=== PATIENT | female | born 1930 | race Caucasian/White ===

== ENCOUNTER 2017-02-18 04:33 | Inpatient (IN) | payer MEDICARE, BC ==
[2017-02-17 22:19] LABS: HEMOGLOBIN 10.4 g/dL (12.0-16.0); MEAN CORPUS HGB CONC 30.6 g/dL (32.0-36.0); MEAN CORPUSCULAR HEMOGLOB 24.9 pg (26.0-34.0); MEAN PLATELET VOLUME 10.1 fL (9.2-13.0); PLATELET COUNT 219 10/3/uL (150-400); RBC DISTRIBUTION WIDTH 17.8 % (12.0-16.0); RED CELL COUNT 4.18 10/6/uL (4.0-5.6)
[2017-02-17 22:21] LABS: MEAN CORPUSCULAR VOLUME 81.3 fL (80-100); WHITE BLOOD CELLS 26.2 10/3/uL (4.5-10.5)
[2017-02-17 22:24] LABS: MANUAL DIFF YES %
[2017-02-17 22:38] LABS: ANISOCYTOSIS 1+ (5-10/OIF) (0-5/OIF); BAND NEUTROPHILS 10 %; LYMPHOCYTES 1 %; LYMPHOCYTES ABSOLUTE (CALC) 0.26 10/3/uL (0.67-4.30); MONOCYTES 2 %; MONOCYTES ABSOLUTE (CALC) 0.52 10/3/uL (0.21-1.20); NEUTROPHILS ABSOLUTE (CALC) 25.41 10/3/uL (2.02-8.40); PLATELET ESTIMATE ADQ (ADEQUATE); SEGMENTED NEUTROPHIL (0) 87 %; TOTAL NUCLEATED CELLS 100
[2017-02-17 22:41] LABS: ASCORBIC ACID (UR NOT ORDER) NEG (NEG); BILIRUBIN, URINE NEGATIVE (NEG); KETONE, URINE NEGATIVE (NEG)
--- NOTE | ~2017-02-18 | DS ---
Discharge Summary [facility] [address] [place]. [address] NAME: ANGELICA BELLO : [birth year] STATUS : DIS IN PAT#: [id number] AGE: 86 ADM/REG DATE : 02/18/17 MR#: [id number] REPORT SERV DATE: 02/28/17 DICTATED BY: LUIZA DAO DATE: 02/23/17 REPORT STATUS : Draft TRANSCRIBED BY: HUGO DATE: 02/23/17 ADMISSION DATE: 02/18/2017 DISCHARGE DATE: 02/23/2017 DISCHARGE DIAGNOSES: 1. Sepsis secondary to urinary tract infection. 2. 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 3. Left lingular lobe pneumonia. 4. History of nephrolithiasis. 5. 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 6. Severe advanced vascular dementia. 7. History of chronic atrial fibrillation, on Eliquis. 8. Hypertension. 9. History of hyperlipidemia. 10.Hypothyroidism. 11.Obstructive sleep apnea, noncompliant with CPAP therapy. 12.History of gastroesophageal reflux disease. 13.History of dysphagia requiring PEG tube insertion, now removed. 14.DNR code status. 15.Acute encephalopathy. DISCHARGE CONDITION: Stable. HISTORY OF PRESENT ILLNESS: For detailed HPI, please make reference to Dr. Kendall Cuellar's dictation on 02/18/2017. In brief, this is an 86-year-old female with advanced dementia who is a long-term resident of [facility] who presented to the emergency room with concerns of fevers. The patient was found to have a temperature of 102 degree Fahrenheit and noted to have some significant abnormal labs, hence, was transferred to the emergency room for further evaluation. In the ER, temperature was 100.5, pulse was 92, blood pressure 135/44, MAP of 65, saturating 97% on room air. Physical examination was noted for irregularly irregular rate and rhythm, sedated and lethargic, unable to complete the neuro exam. LABORATORY DATA: Laboratory data in the ER showed white blood cell of 27.1, hemoglobin of 10.2, creatinine of 0.86. Urinalysis showed large leukocyte esterase with 69 white blood cell count with many bacteria. Chest x-ray showed a left lower lobe infiltrate concerning for pneumonia and assessment of severe sepsis secondary to urinary tract infection and pneumonia was made in the ER, the patient was admitted to the Hospitalist Service. HOSPITAL COURSE: 1. Severe sepsis secondary to urinary tract infection and left lower lobe pneumonia. The patient's blood cultures were obtained. Urine cultures were obtained. Sputum cultures obtained. The patient was started on empiric broad-spectrum IV antibiotics. The patient's white blood cell gradually trended down, remained afebrile. Urine culture came back positive for ESBL E. coli blood cultures which yielded no growth. The patient was transitioned from IV broad-spectrum antibiotics to IV meropenem. When the patient's white blood cell count returned back to baseline of 8.0, the patient was Discharge Summary [address] [address] NAME: ANGELICA BELLO : [birth year] STATUS : DIS IN PAT#: [id number] AGE: 86 ADM/REG DATE : 02/18/17 MR#: [id number] REPORT SERV DATE: 02/28/17 DICTATED BY: LUIZA DAO DATE: 02/23/17 REPORT STATUS : Draft TRANSCRIBED BY: HUGO DATE: 02/23/17 transitioned to p.o. antibiotics. Prior to discharge, the patient has completed five days of IV antibiotics for UTI. The patient was advised to follow up with primary care physician. 2. Acute encephalopathy. During the course of this admission, the patient developed severe drowsiness, somnolence, and CT of the brain was done that shows chronic known CVA but no acute CVA and MRI was done that showed no evidence of acute cerebrovascular accident, noted was severe cerebral atrophy. EEG was done that shows diffuse slow-wave consistent with metabolic encephalopathy. No seizure-like activity is detected, severe metabolic encephalopathy likely related to sequelae of known CVA. The patient was advised to continue Keppra. The patient was advised to avoid all sedating medications. The patient's mental status has significantly improved prior to discharge. The patient was subsequently discharged to [facility] in stable condition. 3. Atrial fibrillation. The patient's rate was controlled throughout the course of this admission. The patient was continued on Eliquis for chronic anticoagulation. DISCHARGE MEDICATIONS: 1. Norvasc 2.5 mg p.o. every morning. 2. Apixaban 2.5 mg p.o. b.i.d. 3. Artificial Tear ointment. 4. Dulcolax 10 mg p.o. suppository. 5. BuSpar 5 mg p.o. daily. 6. Coreg 25 mg p.o. b.i.d. 7. Cymbalta 60 mg p.o. every morning. 8. Flonase nasal spray. 9. Keppra 50 mg p.o. daily. 10.Levothyroxine 125 mcg p.o. at bedtime. 11.Omeprazole 20 mg p.o. daily. 12.MiraLAX p.r.n. 13.Sherita-Colace. 14.Acetaminophen. 15.Hydrocodone 7.5 mg p.o. p.r.n. for pain. DISCHARGE ACTIVITY: As tolerated. DISCHARGE DISPOSITION: residential facility at [facility]. Greater than 35 minutes was used to prepare this patient's discharge, reconcile medication, advise the patient on discharge plans and followup. DICTATED BY: MD TOM SextonO/HUGO Discharge Summary [address] [address] NAME: ANGELICA BELLO : [birth year] STATUS : DIS IN LOCATED WITHIN [facility]#: [id number] AGE: 86 ADM/REG DATE : 02/18/17 MR#: [id number] REPORT SERV DATE: 02/28/17 DICTATED BY: LUIZA DAO DATE: 02/23/17 REPORT STATUS : Draft TRANSCRIBED BY: MODL DATE: 02/23/17 Luiza Dao MD / [id number] CC: Luiza Dao MD
--- NOTE | ~2017-02-18 | EEG ---
Electroencephalogram [facility] [address] [place]. [address] NAME: ANGELICA BELLO : [birth year] STATUS : ADM IN PAT#: [id number] AGE: 86 ADM/REG DATE : 02/18/17 MR#: [id number] REPORT SERV DATE: 02/23/17 DICTATED BY: JOHNNIE HERNANDEZ DATE: 02/23/17 REPORT STATUS : Draft TRANSCRIBED BY: MODL DATE: 02/23/17 INTERPRETING PHYSICIAN: Johnnie Hernandez MD-Neurology. REASON FOR EEG: Altered mental status and encephalopathy. 23 surface electrodes, 10-20 international placement was used. The patient was noted to be awake and drowsy throughout the study. Photic stimulation was performed. Video monitoring was utilized. The background activity consisted of moderate voltage poorly-organized 7 to 8 cycles per second, located in the posterior head regions. Mild asymmetry of cerebral activity was seen with increase of slower frequencies noted in the right hemisphere especially in the right temporal region with slowing noted consistently throughout the recording. Photic stimulation did not bring out additional abnormalities and no driving response was noted posteriorly. No paroxysmal or epileptiform activity was seen during the study. The patient's architectural administrative assistant showed irregularly irregular heart rate of approximately 76 to 82 beats per minute. IMPRESSION: ABNORMAL EEG CHARACTERIZED BY DIFFUSE SLIGHT SLOWING OF CEREBRAL ACTIVITY WITH PERSISTENT ASYMMETRY OF RIGHT HEMISPHERIC SLOWING PRESENT. THIS SLOWING WAS MOST PROMINENT IN THE RIGHT POSTERIOR TEMPORAL REGION. NO PAROXYSMAL OR EPILEPTIFORM ACTIVITY WAS SEEN DURING THE STUDY. THIS EEG IS COMPATIBLE WITH DIFFUSE CEREBRAL DYSFUNCTION UNDERLYING RIGHT HEMISPHERIC SLOWING, MAY SUGGEST PRESENCE OF PERSISTENT PHYSIOLOGICAL DISTURBANCE. THIS PATTERN IS FREQUENTLY SEEN IN PATIENTS WITH PAST HISTORY OF HEMISPHERIC CVA. CLINICAL CORRELATION IS RECOMMENDED. SPIKE/HUGO Johnnie Hernandez MD / [id number] CC: Luiza Naidu MD UNKNOWN
--- NOTE | ~2017-02-18 | HP ---
History And Physical [facility] [address] [place]. [address] NAME: ANGELICA KOCH : [birth year] STATUS : ADM IN [facility]#: [id number] AGE: 86 ADM/REG DATE : 02/18/17 MR#: [id number] REPORT SERV DATE: 02/18/17 DICTATED BY: LUCAS DUFFY DATE: 02/18/17 REPORT STATUS : Draft TRANSCRIBED BY: MODL DATE: 02/18/17 DATE OF ADMISSION: 02/18/2017 POINT OF ENTRY: [facility] Emergency Department. CHIEF COMPLAINT: Fevers and abnormal labs. HISTORY OF PRESENT ILLNESS: Ms. Koch is an 86-year-old female with a history of advanced dementia, who is a long-term resident of [facility] with 24/7 caregivers, who is transferred over for reports of fevers of 102 degrees Fahrenheit as well as abnormal labs. All of history is obtained from review of transfer records, discussion with the ER staff, as well as discussion with her long-term caregiver who was at bedside. She states that the patient had a fever of up to 102 degrees Fahrenheit earlier on the morning of the . The patient also had an episode of nausea and vomiting on as well. Labs were drawn which reportedly came back later the evening of the which showed a white count of approximately 26,000. She was subsequently transferred to [facility] for further evaluation. Caregiver denies any recent concerns for aspiration or dysphagia. She does not eat much but otherwise has not noticed any other significant changes in her behavior. Initial evaluation in the emergency department notable for a white count of 27,100. Lactic acid mildly elevated at 2.8. Urinalysis is positive for urinary tract infection. Chest x- ray concerning for possible left lingular or upper lobe infiltrate. She was subsequently given some IV fluids, 2 g of Rocephin, and some vancomycin, admitted to the Hospitalist Service. REVIEW OF SYSTEMS: Unable to be obtained secondary to the patient's dementia and altered mental status. PREVIOUS MEDICAL HISTORY: 1. Advanced dementia. 2. History of cerebrovascular accident. 3. Seizure disorder. 4. Atrial fibrillation, on Eliquis. 5. Hypertension. 6. Hyperlipidemia. 7. Hypothyroidism. 8. Obstructive sleep apnea, noncompliant with CPAP therapy. 9. History of nephrolithiasis. 10.History of recurrent urinary tract infections with ESBL E. coli. 11.Gastroesophageal reflux disease. 12.History of dysphagia requiring PEG tube insertion and now removal. SURGICAL HISTORY: 1. Abdominal hysterectomy. 2. Right shoulder. History And Physical [facility] [address] [facility] [place]. [address] NAME: ANGELICA KOCH : [birth year] STATUS : ADM IN [facility]#: [id number] AGE: 86 ADM/REG DATE : 02/18/17 MR#: [id number] REPORT SERV DATE: 02/18/17 DICTATED BY: LUCAS DUFFY DATE: 02/18/17 REPORT STATUS : Draft TRANSCRIBED BY: HUGO DATE: 02/18/17 3. Cystoscopy and ureteral stent placement. ALLERGIES: IODINE AND SHELLFISH. HOME MEDICATIONS: 1. Tylenol 650 mg q.4 hours p.r.n. 2. Norvasc 2.5 mg daily. 3. Eliquis 2.5 mg b.i.d. 4. Artificial Tears one to two drops q.i.d. 5. Dulcolax 10 mg daily p.r.n. 6. BuSpar 5 mg b.i.d. 7. Carvedilol 25 mg b.i.d. 8. Vitamin D 1000 units daily. 9. Cymbalta 60 mg daily. 10.Flonase one spray nasal daily. 11.Gabapentin 100 mg b.i.d. 12.[place] 7.5/325 one tab q.4 hours. 13.Keppra 500 mg daily. 14.Levothyroxine 112 mcg daily. 15.Milk of magnesia 30 mL daily p.r.n. 16.Omeprazole 20 mg at bedtime. 17.MiraLAX 17 g b.i.d. 18.Prednisone 5 mg daily. 19.Phenergan 12.5 mg q.8 hours p.r.n. 20.Florastor 250 mg b.i.d. 21.Senokot with docusate two tabs daily. 22.[place] nasal spray. 23.Systane ointment at bedtime. SOCIAL HISTORY: Denies any tobacco, alcohol, or illicits. She is a long-term resident of [facility]. Has 24/7 caregivers. FAMILY MEDICAL HISTORY: Coronary artery disease. LABS AND IMAGING: White count 27.1, hemoglobin 10.2, hematocrit is 32.8, and platelet count is 238. INR is 1.7. Sodium is 139, potassium 3.4, chloride 101, carbon dioxide 30, BUN 13, creatinine 0.86, glucose is 107, calcium is 8.4, protein 7.1, albumin is 2.8, bilirubin 0.7, ALT 21, AST 24, alkaline phosphatase is 67. Urinalysis: Specific gravity is 1.019, hazy with large blood, moderate leukocyte esterase, 15 red and 69 white blood cells per high-powered field with many bacteria. Chest x-ray per my review shows a left lingular versus upper lobe infiltrate. EKG per review shows atrial fibrillation with good rate control with heart rate of 93. No History And Physical [address] [address] NAME: ANGELICA KOCH : [birth year] STATUS : ADM IN [facility]#: [id number] AGE: 86 ADM/REG DATE : 02/18/17 MR#: [id number] REPORT SERV DATE: 02/18/17 DICTATED BY: LUCAS DUFFY DATE: 02/18/17 REPORT STATUS : Draft TRANSCRIBED BY: HUGO DATE: 02/18/17 evidence of any acute ischemia or infarction. PHYSICAL EXAMINATION: VITAL SIGNS: Temperature is 100.5 degrees Fahrenheit, pulse is 92, respirations 18, and saturating 97% on room air. Blood pressure 135/44, MAP of 65. GENERAL: The patient is chronically ill-appearing, elderly female who is currently somewhat sedated and lethargic from receiving Phenergan earlier. Caregiver is at bedside. HEENT: Atraumatic and normocephalic. Dry mucous membranes. Pupils are equal and round. NECK: No jugular venous distention. No carotid bruits. CARDIAC: Irregularly irregular rate and rhythm. No murmurs or gallops. Normal S1, S2. LUNGS: Limited examination by patient effort. I do not appreciate any wheezes, rhonchi, or crackles. ABDOMEN: Soft. It is somewhat tender on palpation diffusely. EXTREMITIES: Warm, perfused. No cyanosis, clubbing, or edema. SKIN: Warm and dry. PSYCH: Sedated. NEURO: Sedated and lethargic, unable to cooperate with neuro exam. ASSESSMENT: Ms. Koch is an 86-year-old female with history of nephrolithiasis as well as recurrent urinary tract infection who presents with fevers and elevated white count and found to have evidence of sepsis, urinary tract infection, as well as possible pneumonia. PROBLEM LIST: 1. Urinary tract infection and pyelonephritis. 2. Sepsis. 3. Left lingular pneumonia. 4. History of nephrolithiasis. 5. Severe dementia. 6. History of dysphagia. PLAN: 1. Urinary tract infection. The patient has a history of ESBL E. coli urinary tract infection. Therefore, we will change antibiotics to Zosyn for appropriate coverage. Follow up urine cultures. Given her history of nephrolithiasis, we will check a CT scan kidney stone protocol. 2. Left lingular pneumonia. Follow up formal Radiology interpretation of chest x-ray, but given history of dysphagia and aspiration in the past as well as nausea, vomiting earlier today, I am concerned for possible aspiration pneumonia which Zosyn will cover. Also adding on vancomycin given her residence at [facility]. Followup blood as well as sputum culture. 3. Sepsis. Meets criteria with leukocytosis as well as fevers at [facility] and heart rate greater than 90. Lactic acid is 2.8, provide aggressive IV fluid hydration, IV antibiotics. Follow up blood sputum and urine cultures. Repeat lactic acid as well as checking procalcitonin. 4. History of nephrolithiasis. Checking kidney stone protocol. 5. History of dysphagia, covering for possible aspiration pneumonia. 6. DVT prophylaxis. She is already on Eliquis. History And Physical [address] [address] NAME: ANGELICA KOCH : [birth year] STATUS : ADM IN [facility]#: [id number] AGE: 86 ADM/REG DATE : 02/18/17 MR#: [id number] REPORT SERV DATE: 02/18/17 DICTATED BY: LUCAS DUFFY DATE: 02/18/17 REPORT STATUS : Draft TRANSCRIBED BY: HUGO DATE: 02/18/17 7. Code status. The patient is DNR/DNI. This was confirmed with son over the phone. She also does not want to be overly aggressive with regard to her care, and at this time, we will hold off on central line placement or vasopressors should she develop that need in the future. SUNDEEP/MODL Lucas Duffy MD / [id number] CC: Sherley Bach Dr.
[2017-02-18 01:55] LABS: ASCORBIC ACID (UR NOT ORDER) NEG (NEG); BILIRUBIN, URINE NEGATIVE (NEG); ER URINALYSIS TAT 0 Hrs 02 Mins; KETONE, URINE NEGATIVE (NEG); LEUKOCYTE ESTERASE(NOT OR MOD (NEG); NITRITE (URINE) NEG (NEG); WBC (NOT ORDERED) (RFLEX) 69 (0-5)
[2017-02-18 03:34] LABS: BASOPHILS 0.1 %; BASOPHILS ABSOLUTE 0.02 10/3/uL (0.0-0.16); EOSINOPHILS 0.3 %; EOSINOPHILS ABSOLUTE 0.09 10/3/uL (0.0-0.53); ER CBC TAT 0 Hrs 05 Mins; HEMATOCRIT 32.8 % (36.0-48.0); HEMOGLOBIN 10.2 g/dL (12.0-16.0); IMMATURE GRANULOCYTES 0.4 %; LYMPHOCYTES 6.9 %; LYMPHOCYTES ABSOLUTE 1.87 10/3/uL (0.67-4.30); MEAN CORPUS HGB CONC 31.1 g/dL (32.0-36.0); MEAN CORPUSCULAR HEMOGLOB 25.2 pg (26.0-34.0); MEAN PLATELET VOLUME 9.9 fL (9.2-13.0); MONOCYTES 6.8 %; MONOCYTES ABSOLUTE 1.84 10/3/uL (0.21-1.20); NEUTROPHILS 85.5 %; NEUTROPHILS ABSOLUTE 23.15 10/3/uL (2.02-8.40); PLATELET COUNT 238 10/3/uL (150-400); RBC DISTRIBUTION WIDTH 17.7 % (12.0-16.0); RED CELL COUNT 4.05 10/6/uL (4.0-5.6); WHITE BLOOD CELLS 27.1 10/3/uL (4.5-10.5)
[2017-02-18 03:35] LABS: MANUAL DIFF NO %
[2017-02-18 03:41] LABS: INTERNATIONAL NORMAL RATI 1.7 UNITS (-); PARTIAL THROMBO TIME 31.6 SEC (22.5-37.2)
[2017-02-18 03:43] LABS: PROTIME (NOT ORD) 19.4 SEC (12.0-14.5)
[2017-02-18 03:48] LABS: A/G RATIO 0.7 (0.7-1.9); ALBUMIN 2.8 G/DL (3.5-5.0); ALKALINE PHOSPHATASE 67 U/L (45-117); BUN (BLOOD UREA NITROGEN) 13 MG/DL (6-23); CALCIUM, SERUM 8.4 MG/DL (8.5-10.4); CHLORIDE, SERUM 101 MMOL/L (96-112); CO2 (CARBON DIOXIDE) 30 MMOL/L (24-34); CREATININE 0.86 MG/DL (0.55-1.02); GFR AFRICAN AMERICAN 70 ML/MIN (>=60); GFR NON AFRICAN AMERICAN 61 ML/MIN (>=60); GLOBULIN 4.3 G/DL (2.5-4.1); GLUCOSE, SERUM 107 MG/DL (60-99); SGOT(AST) 24 U/L (5-40); SGPT(ALT) 21 U/L (5-65); SODIUM, SERUM 139 MMOL/L (135-148); TOTAL BILIRUBIN 0.7 MG/DL (0-1.2); TOTAL PROTEIN 7.1 G/DL (6.0-8.5)
[2017-02-18 03:49] LABS: POTASSIUM, SERUM 3.4 MMOL/L (3.5-5.3)
[2017-02-18 03:52] LABS: BAND NEUTROPHILS 9 %; ER DIFF TAT 0 Hrs 23 Mins; LYMPHOCYTES 7 %; PLATELET ESTIMATE ADQ (ADEQUATE); RBC MORPHOLOGY NORM (NORMAL); SEGMENTED NEUTROPHIL (0) 84 %; TOTAL NUCLEATED CELLS 100
[2017-02-18 03:58] LABS: LACTATE 2.8 MMOL/L (0.3-2.4)
[~2017-02-18 04:33] MED LIST: 8 HOUR650 MG PO; ASAB PO; ASPIRIN 81 MG B8113 PO; ATEN25 PO; B12100T PO; BEN25 PO; BENADRYL 50 MG50 MG PO; BISR PR; BUSPAR5 PO; C2 PO; C25 PO; CALTRA600D PO; CAT1 PO; CATPATCH1 TOP; CENTRUM PO; CENTRUM TAB1 TAB PO; CLARIT10 PO; COREG25 PO; COZ25 PO; CRANBERRY300 MG OR; CRANBERRY400 MG OR; CRESTOR10 PO; CYMBALTA30 PO; CYMBALTA60 PO; DIOV80 PO; DIOVAN HC1 PO; DITROPAN XL15 MG PO; DITROXL5 PO; DOMPERIDONE PO; DSS PO; ELIQUIS 2.5 MG2.5 MG PO; ENDOCET1 TA3 PO; EXELON9.5T TOP; FISH-EPA1000 MG PO; FLEXERIL5 MG PO; FLONASE NAS; FLORASTOR250 MG PO; FLUCON150 PO; HUSBAND TO BRING; JANTOVEN1 MG PO; JANTOVEN2 MG PO; K-TABS10 MEQ PO; KEPPRA XR500 MG PO; KEPPRA250 PO; KEPPRA500 PO; KLOR-CON M2020 MEQ PO; LEVOTHYROXIN112 MCG PO; LEVOTHYROXIN125 MCG PO; LIDODERM T; LIOR10 PO; LIPITOR10 PO; LOP50 PO; LOVENOX40 SC; LUTEIN20 MG OR; MACROBID PO; MAGOX4 PO; MIRALAX POWDER1 PKT PO; MIRALAXPKT PO; MOBIC7.5 PO; MOMUD PO; MUCINEX1200 MG PO; MULTIPLE VIT PO; MULTIVITAMI1 PO; MULTIVITAMINS PO; MYCOSCROI TOP; NEUR100 PO; NEXIUM40 PO; NORCO1 TA2 PO; NORV25 PO; NORV5 PO; NORVASC 2.5 MG2.5 MG PO; NYSTATIN T; NYSTOP100000 MG TOP; OCEAN NAS; OXYCOD PO; OXYCODONE-ACET1 EAC3 PO; OXYCON10 PO; OXYCON20 PO; OXYCONTIN30 MG PO; P10 PO; P5 PO; PCET PO; PEP20 PO; PERCOCET1 TA2 PO; PERCOCET1 TA4 PO; PERI-COLACE1 TAB PO; PLAVIX PO; PR12.5 PO; PR12.5R PR; PR25 PO; PREDNISOL5 PO; PREM625 PO; PRILO PO; REM15 PO; SENTAB PO; SINGULAIR1 PO; SYN1 PO; SYN112 PO; SYN125 PO; SYSTAN1 OPH; T PO; TEARS AGAI1 OPH; TEARS NATURA OPH; TESS PO; THERA MULTI1 ML PO; THERA PLUS; THERAVITE; THERAVITE PO; TOPXL25 PO; TOVIAZ4 MG PO; TOVIAZ8 MG PO; VESICARE5 PO; VITAMIN D31000 UNIT PO; ZITH250 PO; ZOCOR40 PO; ZOFRAN ODT4 MG PO; ZOL100 PO; ZOL50 PO
[2017-02-18 04:51] LABS: PROCALCITONIN 0.43 ng/mL (<0.5)
[2017-02-19 07:37] LABS: BASOPHILS 0.1 %; BASOPHILS ABSOLUTE 0.01 10/3/uL (0.0-0.16); EOSINOPHILS 0 %; HEMOGLOBIN 8.8 g/dL (12.0-16.0); IMMATURE GRANULOCYTES 0.2 %; IMMATURE GRANULOCYTES ABSOLUTE 0.03 10/3/uL (0.0-0.11); LYMPHOCYTES 5.4 %; LYMPHOCYTES ABSOLUTE 0.78 10/3/uL (0.67-4.30); MEAN CORPUS HGB CONC 31.9 g/dL (32.0-36.0); MEAN CORPUSCULAR HEMOGLOB 25.2 pg (26.0-34.0); MEAN CORPUSCULAR VOLUME 79.1 fL (80-100); MEAN PLATELET VOLUME 9.7 fL (9.2-13.0); MONOCYTES 4.9 %; MONOCYTES ABSOLUTE 0.71 10/3/uL (0.21-1.20); NEUTROPHILS 89.4 %; NEUTROPHILS ABSOLUTE 12.85 10/3/uL (2.02-8.40); PLATELET COUNT 193 10/3/uL (150-400); RBC DISTRIBUTION WIDTH 17.9 % (12.0-16.0); RED CELL COUNT 3.49 10/6/uL (4.0-5.6)
[2017-02-19 07:38] LABS: HEMATOCRIT 27.6 % (36.0-48.0); MANUAL DIFF NO %; WHITE BLOOD CELLS 14.4 10/3/uL (4.5-10.5)
[2017-02-19 07:54] LABS: BUN (BLOOD UREA NITROGEN) 11 MG/DL (6-23); CALCIUM, SERUM 8.6 MG/DL (8.5-10.4); CHLORIDE, SERUM 109 MMOL/L (96-112); CO2 (CARBON DIOXIDE) 28 MMOL/L (24-34); CREATININE 0.68 MG/DL (0.55-1.02); GFR AFRICAN AMERICAN 91 ML/MIN (>=60); GFR NON AFRICAN AMERICAN 79 ML/MIN (>=60); GLUCOSE, SERUM 138 MG/DL (60-99); POTASSIUM, SERUM 3.5 MMOL/L (3.5-5.3); SODIUM, SERUM 145 MMOL/L (135-148)
[2017-02-20 04:12] LABS: BASOPHILS 0 %; EOSINOPHILS 0 %; HEMATOCRIT 27.4 % (36.0-48.0); HEMOGLOBIN 8.6 g/dL (12.0-16.0); IMMATURE GRANULOCYTES 0.6 %; IMMATURE GRANULOCYTES ABSOLUTE 0.06 10/3/uL (0.0-0.11); LYMPHOCYTES 7.1 %; LYMPHOCYTES ABSOLUTE 0.72 10/3/uL (0.67-4.30); MEAN CORPUS HGB CONC 31.4 g/dL (32.0-36.0); MEAN CORPUSCULAR HEMOGLOB 25.1 pg (26.0-34.0); MEAN CORPUSCULAR VOLUME 79.9 fL (80-100); MEAN PLATELET VOLUME 9.4 fL (9.2-13.0); MONOCYTES 5.2 %; MONOCYTES ABSOLUTE 0.53 10/3/uL (0.21-1.20); NEUTROPHILS 87.1 %; NEUTROPHILS ABSOLUTE 8.79 10/3/uL (2.02-8.40); PLATELET COUNT 216 10/3/uL (150-400); RBC DISTRIBUTION WIDTH 17.8 % (12.0-16.0); RED CELL COUNT 3.43 10/6/uL (4.0-5.6); WHITE BLOOD CELLS 10.1 10/3/uL (4.5-10.5)
[2017-02-20 04:13] LABS: MANUAL DIFF NO %
[2017-02-20 04:25] LABS: BUN (BLOOD UREA NITROGEN) 12 MG/DL (6-23); CALCIUM, SERUM 8.6 MG/DL (8.5-10.4); CHLORIDE, SERUM 109 MMOL/L (96-112); CO2 (CARBON DIOXIDE) 26 MMOL/L (24-34); CREATININE 0.57 MG/DL (0.55-1.02); GFR AFRICAN AMERICAN 97 ML/MIN (>=60); GFR NON AFRICAN AMERICAN 83 ML/MIN (>=60); GLUCOSE, SERUM 136 MG/DL (60-99); POTASSIUM, SERUM 3.2 MMOL/L (3.5-5.3); SODIUM, SERUM 145 MMOL/L (135-148)
[2017-02-21 06:35] LABS: BASOPHILS 0.1 %; BASOPHILS ABSOLUTE 0.01 10/3/uL (0.0-0.16); EOSINOPHILS 0.1 %; EOSINOPHILS ABSOLUTE 0.01 10/3/uL (0.0-0.53); HEMATOCRIT 29.3 % (36.0-48.0); HEMOGLOBIN 9.1 g/dL (12.0-16.0); IMMATURE GRANULOCYTES 0.7 %; IMMATURE GRANULOCYTES ABSOLUTE 0.07 10/3/uL (0.0-0.11); LYMPHOCYTES 14.7 %; LYMPHOCYTES ABSOLUTE 1.52 10/3/uL (0.67-4.30); MANUAL DIFF NO %; MEAN CORPUS HGB CONC 31.1 g/dL (32.0-36.0); MEAN CORPUSCULAR HEMOGLOB 24.9 pg (26.0-34.0); MEAN CORPUSCULAR VOLUME 80.1 fL (80-100); MEAN PLATELET VOLUME 9.5 fL (9.2-13.0); MONOCYTES 12.9 %; MONOCYTES ABSOLUTE 1.33 10/3/uL (0.21-1.20); NEUTROPHILS 71.5 %; PLATELET COUNT 262 10/3/uL (150-400); RBC DISTRIBUTION WIDTH 17.7 % (12.0-16.0); RED CELL COUNT 3.66 10/6/uL (4.0-5.6); WHITE BLOOD CELLS 10.3 10/3/uL (4.5-10.5)
[2017-02-21 06:50] LABS: BUN (BLOOD UREA NITROGEN) 14 MG/DL (6-23); CALCIUM, SERUM 8.3 MG/DL (8.5-10.4); CHLORIDE, SERUM 102 MMOL/L (96-112); CO2 (CARBON DIOXIDE) 29 MMOL/L (24-34); CREATININE 0.74 MG/DL (0.55-1.02); GFR AFRICAN AMERICAN 84 ML/MIN (>=60); GFR NON AFRICAN AMERICAN 73 ML/MIN (>=60); GLUCOSE, SERUM 119 MG/DL (60-99); SODIUM, SERUM 142 MMOL/L (135-148)
[2017-02-21 06:53] LABS: POTASSIUM, SERUM 2.8 MMOL/L (3.5-5.3)
[2017-02-22 05:58] LABS: BASOPHILS 0.1 %; BASOPHILS ABSOLUTE 0.01 10/3/uL (0.0-0.16); EOSINOPHILS 0.5 %; EOSINOPHILS ABSOLUTE 0.05 10/3/uL (0.0-0.53); HEMATOCRIT 31.2 % (36.0-48.0); HEMOGLOBIN 9.7 g/dL (12.0-16.0); IMMATURE GRANULOCYTES 1.3 %; IMMATURE GRANULOCYTES ABSOLUTE 0.14 10/3/uL (0.0-0.11); LYMPHOCYTES 24.5 %; LYMPHOCYTES ABSOLUTE 2.59 10/3/uL (0.67-4.30); MEAN CORPUS HGB CONC 31.1 g/dL (32.0-36.0); MEAN CORPUSCULAR HEMOGLOB 24.9 pg (26.0-34.0); MEAN CORPUSCULAR VOLUME 80.2 fL (80-100); MEAN PLATELET VOLUME 9.2 fL (9.2-13.0); MONOCYTES 14.4 %; MONOCYTES ABSOLUTE 1.53 10/3/uL (0.21-1.20); NEUTROPHILS 59.2 %; NEUTROPHILS ABSOLUTE 6.27 10/3/uL (2.02-8.40); PLATELET COUNT 271 10/3/uL (150-400); RBC DISTRIBUTION WIDTH 17.5 % (12.0-16.0); RED CELL COUNT 3.89 10/6/uL (4.0-5.6); WHITE BLOOD CELLS 10.6 10/3/uL (4.5-10.5)
[2017-02-22 06:02] LABS: MANUAL DIFF NO %
[2017-02-22 06:11] LABS: BUN (BLOOD UREA NITROGEN) 13 MG/DL (6-23); CHLORIDE, SERUM 103 MMOL/L (96-112); CREATININE 0.72 MG/DL (0.55-1.02); GFR AFRICAN AMERICAN 87 ML/MIN (>=60); GFR NON AFRICAN AMERICAN 75 ML/MIN (>=60); GLUCOSE, SERUM 109 MG/DL (60-99); POTASSIUM, SERUM 3.1 MMOL/L (3.5-5.3); SODIUM, SERUM 144 MMOL/L (135-148)
[2017-02-22 06:14] LABS: CO2 (CARBON DIOXIDE) 35 MMOL/L (24-34); PHOSPHORUS, SERUM 2.2 MG/DL (2.5-4.5)
[2017-02-22 12:00] LABS: HEMOGLOBIN 10.7 g/dL (12.0-16.0); MEAN CORPUS HGB CONC 30.5 g/dL (32.0-36.0); MEAN CORPUSCULAR HEMOGLOB 24.8 pg (26.0-34.0); MEAN CORPUSCULAR VOLUME 81.3 fL (80-100); MEAN PLATELET VOLUME 9.1 fL (9.2-13.0); PLATELET COUNT 255 10/3/uL (150-400); RBC DISTRIBUTION WIDTH 17.9 % (12.0-16.0); RED CELL COUNT 4.32 10/6/uL (4.0-5.6)
[2017-02-22 12:01] LABS: HEMATOCRIT 35.1 % (36.0-48.0); MANUAL DIFF YES %
[2017-02-22 12:16] LABS: BUN (BLOOD UREA NITROGEN) 13 MG/DL (6-23); CALCIUM, SERUM 8.1 MG/DL (8.5-10.4); CHLORIDE, SERUM 102 MMOL/L (96-112); CO2 (CARBON DIOXIDE) 32 MMOL/L (24-34); CREATININE 0.59 MG/DL (0.55-1.02); GFR AFRICAN AMERICAN 96 ML/MIN (>=60); GFR NON AFRICAN AMERICAN 82 ML/MIN (>=60); GLUCOSE, SERUM 144 MG/DL (60-99); POTASSIUM, SERUM 3.2 MMOL/L (3.5-5.3); SODIUM, SERUM 142 MMOL/L (135-148); TROPONIN I <0.02 NG/ML (<0.05)
[2017-02-22 12:36] LABS: BAND NEUTROPHILS 2 %; LYMPHOCYTES 11 %; MONOCYTES 7 %; PLATELET ESTIMATE ADQ (ADEQUATE); SEGMENTED NEUTROPHIL (0) 80 %; TOTAL NUCLEATED CELLS 100
[2017-02-22 12:37] LABS: ANISOCYTOSIS 1+ (5-10/OIF) (0-5/OIF)
[2017-02-22 13:22] LABS: FREE T4 1.88 NG/DL (0.76-1.46); ULTRASENSITIVE TSH 0.443 MCIU/ML (0.358-3.740)
== END 2017-02-23 19:09 | DRG 871 ==
LOC: ER 04:33 → 7NO 05:34
PROVIDERS: Hospitalist; Internal Medicine; Internal Medicine Geriatric Medicine; Nurse Practitioner
DX: A41.9 Sepsis, unspecified organism (principal); J18.9 Pneumonia, unspecified organism; G93.41 Metabolic encephalopathy; I69.354 Hemiplegia and hemiparesis following cerebral infarction affecting left non-dominant side; N39.0 Urinary tract infection, site not specified; F01.50 Vascular dementia, unspecified severity, without behavioral disturbance, psychotic disturbance, mood disturbance, and anxiety; I48.2 Chronic atrial fibrillation; N18.3 Chronic kidney disease, stage 3 (moderate); R13.10 Dysphagia, unspecified; D63.8 Anemia in other chronic diseases classified elsewhere; B96.20 Unspecified Escherichia coli [E. coli] as the cause of diseases classified elsewhere; G40.909 Epilepsy, unspecified, not intractable, without status epilepticus; K21.9 Gastro-esophageal reflux disease without esophagitis; E78.5 Hyperlipidemia, unspecified; G47.33 Obstructive sleep apnea (adult) (pediatric); E03.9 Hypothyroidism, unspecified; E87.6 Hypokalemia; N20.0 Calculus of kidney; I12.9 Hypertensive chronic kidney disease with stage 1 through stage 4 chronic kidney disease, or unspecified chronic kidney disease; K56.41 Fecal impaction; Z66 Do not resuscitate; Z87.440 Personal history of urinary (tract) infections; Z90.710 Acquired absence of both cervix and uterus; Z87.442 Personal history of urinary calculi; Z82.49 Family history of ischemic heart disease and other diseases of the circulatory system; Z79.52 Long term (current) use of systemic steroids; Z91.041 Radiographic dye allergy status; Z91.013 Allergy to seafood; Z16.12 Extended spectrum beta lactamase (ESBL) resistance; Z79.02 Long term (current) use of antithrombotics/antiplatelets
CPT/HCPCS: 70450; 70544; 70547; 70551; 71010; 74176; 80048; 80053; 81001; 82140; 82607; 82962; 83605; 83735; 84100; 84132; 84145; 84439; 84443; 84484; 85025; 85610; 85730; 87040; 87077; 87086; 87186; 87449; 93005; 95816; 95819; 96365; 96375; 96376; 97162-GP; 99285; A9270-GY; G8978-CM-GP; G8979-CM-GP; G8980-CL-GP; J1720; J1940; J1956; J2185; J2543; J3370